=== PATIENT | female | born 1990 | race Caucasian/White ===

== ENCOUNTER 2016-10-10 13:21 | Observation (INO) | payer MEDICAID, OTHER ==
[2016-10-10 14:30] LABS: BILIRUBIN,URINE NEGATIVE (NEG); GLUCOSE,URINE NEGATIVE (NEG); NITRITE,URINE NEGATIVE (NEG); PROTEIN,URINE NEGATIVE (NEG-TRACE)
[2016-10-10 14:43] LABS: BARBITURATES NEG (NEG); BENZODIAZEPINES NEG (NEG); CANNABINOIDS NEG (NEG); COCAINE NEG (NEG); METHADONE NEG (NEG); OPIATES NEG (NEG); PHENCYCLIDINE NEG (NEG)
[2016-10-10 14:44] LABS: ETHANOL, URINE NEG (NEG)
--- NOTE | 2016-10-10 14:48 | RAD ---
Obstetrical ultrasound-limited, 10/10/2016: History: Vaginal bleeding There is a single intrauterine fetus in a breech orientation. The biparietal diameter measures 5.1 cm compatible with a gestational age of 21-22 weeks. The femur length measurement suggests a gestational age of 22-23 weeks. The gestational age based on all of the measurements is 22 weeks and 2 days yielding a sonographic EDC of 02/11/2017. Normal activity and heart motion were seen. The heart rate is 139 bpm. A full survey was not performed at this time. The placenta lies posteriorly. A normal amount of amniotic fluid is present. There is funneling of amniotic fluid into the cervix. The superior aspect of the cervix measures just over 2 cm in width. The cervical length is estimated at approximately 4 cm. IMPRESSION: 1. Single viable intrauterine fetus of 2223 weeks gestational age. 2. Funneling of amniotic fluid into the cervix as described above compatible with cervical incompetence. Sonographic follow-up to include transperineal or transvaginal scanning is suggested.
[2016-10-10] MEDS ORDERED: IV RINGERS,LACTATED 500ML 500 ML IV PRN (15:15)
[2016-10-10] MEDS: IV RINGERS,LACTATED 1000ML 1,000 ML IV SCH ×2 (15:38→18:28)
[2016-10-10 16:26] LABS: BASO % 0 % (0-3); EOS % 1 % (0-3); HEMATOCRIT 34.5 % (36.0-47.0); HEMOGLOBIN 11.9 g/dL (12.0-15.5); LYMPH # 1.8 x10^3/uL (1.0-4.8); LYMPH % 13 % (24-48); MEAN CORPUSCULAR HEMOGLOBIN 33 pg (25-35); MEAN CORPUSCULAR HGB CONC 35 g/dL (31-37); MEAN CORPUSCULAR VOLUME 95 fL (79-100); MONO % 7 % (0-9); NEUT % 79 % (31-73); PLATELET COUNT 226 x10^3/uL (140-400); RED BLOOD COUNT 3.62 x10^6/uL (3.50-5.40); RED CELL DISTRIBUTION WIDTH 14.2 % (11.5-14.5); WHITE BLOOD COUNT 14.4 x10^3/uL (4.0-11.0)
[2016-10-10 16:58] VITALS: BP 110/59
[2016-10-10] MEDS ORDERED: NIFEDIPINE 10 MG CAPSULE PO SCH (18:00)
[2016-10-12 22:09] LABS: HEP B SURFACE ABDY Reactive (.)
== END 2016-10-10 20:49 | disposition home or self-care (01) ==
LOC: INTOOBSV 13:21 → 3 SO LND 13:21
PROVIDERS: ADMIT Specialist; ATTEND Specialist
DX: O26.852 Spotting complicating pregnancy, second trimester (principal); O26.892 Other specified pregnancy related conditions, second trimester; N89.8 Other specified noninflammatory disorders of vagina; Z3A.23 23 weeks gestation of pregnancy
CPT/HCPCS: 36415; 76815; 81003; 85027; 86593; 86706; 86762; 86850; 86900; 86901; 96360; 96361; G0378; G0379; G0481; J7120